=== PATIENT | male | born 1960 | race Caucasian/White ===

== ENCOUNTER 2016-08-09 11:29 | Emergency (ER) | payer MEDICAID ==
[2016-08-09] MEDS ORDERED: DIPH,PERTUS(ACELL)TETVAC-LF 0.5 ML VIAL IM ONE (11:55)
--- NOTE | 2016-08-09 12:16 | ED ---
Wound/Laceration HPI - General Chief Complaint: Wound/Laceration Stated Complaint: rt hand injury from mower blade Time Seen by Provider: 08/09/16 11:52 Source: patient, RN notes reviewed Mode of arrival: ambulatory Limitations: no limitations - History of Present Illness Initial Comments: 25-year-old male present emergency Department with chief complaint of finger lacerations. Patient states he was sharp pain has more blade splinter retightening him back on and slipped. Patient states his laceration to his second and third digit. Patient is unsure when his last tetanus was. Patient states has full range of motion no paresthesias. - Related Data Home Medications Medication Instructions Recorded Confirmed Allopurinol [Allopurinol] 300 mg PO DAILY 08/09/16 08/09/16 Glimepiride [Amaryl] 2 mg PO BID 08/09/16 08/09/16 metFORMIN HCL 1,000 mg PO BID 08/09/16 08/09/16 Previous Rx's Medication Instructions Recorded EPINEPHrine [Epipen 2-Charbel] 0.3 mg IM ONCE PRN #1 box 05/07/15 Allergies Allergy/AdvReac Type Severity Reaction Status Date / Time No Known Allergies Allergy Verified 08/09/16 11:47 Review of Systems ROS Statement: Those systems with pertinent positive or pertinent negative responses have been documented in the HPI. ROS Other: All systems not noted in ROS Statement are negative. Past Medical History Past Medical History: No Reported History History of Any Multi-Drug Resistant Organisms: None Reported Past Surgical History: Tonsillectomy Additional Past Surgical History / Comment(s): right great toe Past Psychological History: Anxiety, Depression Smoking Status: Never smoker Past Alcohol Use History: None Reported Past Drug Use History: None Reported General Exam Limitations: no limitations General appearance: alert, in no apparent distress Head exam: Present: atraumatic, normocephalic, normal inspection Respiratory exam: Present: normal lung sounds bilaterally. Absent: respiratory distress, wheezes, rales, rhonchi, stridor Cardiovascular Exam: Present: regular rate, normal rhythm, normal heart sounds. Absent: systolic murmur, diastolic murmur, rubs, gallop, clicks Extremities exam: Present: other (2 cm laceration to his right hand index finger , 1 cm laceration to third digit patient has full range of motion full-strength no tendon involvement neurovascular intact) Course Vital Signs 08/09/16 11:40 Temperature 98.4 F Pulse Rate 86 Respiratory 18 Rate Blood Pressure 133/81 O2 Sat by Pulse 97 Oximetry Procedures - Laceration Laceration #1 Consent Obtained: verbal consent Site: hand (Right hand second digit) Size (cm): 2 Description: irregular Depth: simple, single layer Anesthetic Used: lidocaine 1%, without epi Anesthesia Technique: local infiltration Amount (mls): 4 Pre-repair: wound explored, irrigated extensively, deep structures intact Type of Sutures: nylon Size of Sutures: 4-0 Number of Sutures: 5 Technique: simple, interrupted Patient Tolerated Procedure: well, no complications Laceration #2 Consent Obtained: verbal consent Indication: laceration Site: hand (Right hand third digit) Size (cm): 1 Description: linear, irregular Depth: simple, single layer Anesthetic Used: lidocaine 1%, without epi Anesthesia Technique: local infiltration Amount (mls): 2 Pre-repair: wound explored, irrigated extensively, deep structures intact Type of Sutures: nylon Size of Sutures: 4-0 Number of Sutures: 2 Technique: simple, interrupted Patient Tolerated Procedure: well, no complications Medical Decision Making - Medical Decision Making 55-year-old male presented for finger lacerations. They were closed using Ethilon sutures. Patient's wounds were thoroughly cleaned. Patient will be discharged tetanus was updated. Disposition Clinical Impression: Laceration of finger of right hand Disposition: HOME SELF-CARE Condition: Stable Instructions: Care For Your Stitches (ED), Finger Laceration (ED) Additional Instructions: Wash the area twice daily with soap and water. Have sutures removed in 10 days.Please return to the Emergency Department if symptoms worsen or any other concerns. Referrals: Jaime Osorio MD [Primary Care Provider] - 1-2 days Time of Disposition: 12:16
[2016-08-09 12:25] VITALS: BP 144/90; PULSE 90; RESP 16; TEMP 97.6
== END 2016-08-09 12:32 | disposition home or self-care (01) ==
LOC: EC 11:29
DX: S61.210A Laceration without foreign body of right index finger without damage to nail, initial encounter (principal); S61.212A Laceration without foreign body of right middle finger without damage to nail, initial encounter; Z23 Encounter for immunization; Z79.84 Long term (current) use of oral hypoglycemic drugs; Z79.899 Other long term (current) drug therapy
CPT/HCPCS: 12002; 90471; 90715; 99283

== ENCOUNTER → 2017-03-13 | Outpatient (CLI) | payer MEDICAID ==
[2017-03-13 15:35] LABS: Blood Urea Nitrogen 16 mg/dL (9-20); Non-African American GFR(MDRD) >60 (>60 ml/min/1.73 sqM)
--- NOTE | 2017-03-13 16:31 | CT ---
EXAMINATION TYPE: CT soft tissue neck w con DATE OF EXAM: 03/13/2017 HISTORY: Swelling to left jaw area. COMPARISON: NONE CT DLP: 435.4 mGycm. Automated Exposure Control for Dose Reduction was Utilized. TECHNIQUE: CT scan of the neck is performed with IV Contrast, patient injected with 100 mL of Omnipa que 300, axial images are obtained, coronal and sagittal reformatted images are reviewed. FINDINGS: The left submandibular gland is located deep to the BB marker indicating the area of swelling. Crania l to this there are few nonenlarged left submandibular lymph nodes. No enlarged lymph nodes are seen of the head or neck. Prominent jugulodigastric lymph nodes are present bilaterally, although nonenlar ged. No inflammatory changes are seen surrounding the submandibular or parotid glands. No focal hemod ynamically significant stenosis of greater than 50% of the carotid arteries prior. Minimal noncalcifi c atheromatous change is seen of the left common carotid artery. Left supraclavicular lymph node measures 8 mm in short axis and although is prominent, is nonenlarged . Globes are intact and orbits are symmetric. 8 mm hypoattenuated nodule seen of the left thyroid gla nd. Minimal subsegmental atelectasis is seen of the lung apices as is mild centrilobular emphysematou s change. Multilevel moderate degenerative change of the cervical spine is present. Polypoid mucosal thickening is present of both maxillary sinuses measuring up to 1.8 cm on the right. Ethmoid and sphe noid paranasal sinuses and mastoid air cells are well aerated. Localized calcification in the posteri or longitudinal ligament is seen at C2-C3. There is straightening of the usual cervical lordosis. IMPRESSION: 1. No abnormality deep to the patient's area of swelling within the left submandibular region. The le ft submandibular gland is seen deep to the palpable BB marker without asymmetric enhancement or infla mmatory change. No asymmetric size of the submandibular glands are seen. Nonenlarged left submandibul ar lymph nodes are noted. 2. Incidentally noted 8 mm left posterior thyroid nodule for which full characterization with thyroid ultrasound could be performed. 3. Polypoid mucosal thickening of the maxillary sinuses that may relate to retention cyst or paranasa l sinus polyps. 4. Straightening of the cervical lordosis that may relate to patient positioning or muscular spasm. M ultilevel moderate degenerative changes of the cervical spine are present. 5. Mild centrilobular emphysematous changes of the lung apices.
== END | disposition home or self-care (01) ==
LOC: RADXRMAIN 15:03
PROVIDERS: ATTEND Family Medicine
DX: E04.1 Nontoxic single thyroid nodule (principal); J43.9 Emphysema, unspecified; E11.9 Type 2 diabetes mellitus without complications
CPT/HCPCS: 82565; 84520; 70491; Q9967

== ENCOUNTER → 2018-07-06 | Outpatient (CLI) | payer MEDICAID ==
--- NOTE | 2018-07-07 07:21 | US ---
EXAMINATION TYPE: US thyroid st tissue head/neck DATE OF EXAM: 07/06/2018 COMPARISON: US 2017 CLINICAL HISTORY: E04.1 Nontoxic Single thyroid nodule. Goiter GLAND SIZE: Right Lobe: 5.4 x 1.6 x 1.9 cm Overall Parenchyma: homogenous Left Lobe: 4.5 x 1.5 x 1.8 cm Overall Parenchyma: homogeneous Isthmus Thickness: 0.4 cm NODULES RIGHT: # of nodules measured on right: 1 1. 0.4 X 0.3 x 0.6 cm hypoechoic bi-lobed cystic nodule at the mid pole with well-defined margins. This nodule is wider than tall and shows no intranodular vascularity. Prior size: no previous LEFT: 1# of nodules measured on left: 1 1. 1.4 X 0.7 x 1.0 cm hypoechoic cystic nodule at the mid pole with well-defined margins. This nodu le is wider than tall and shows intranodular vascularity seen in 0.3cm solid component. Prior size: 1.1 x 0.7 x 0.9 cm ISTHMUS: # of nodules measured in the isthmus: 0 Bilateral neck scanned, no evidence of lymphadenopathy. Enlarged right lobe with bilateral nodules seen. IMPRESSION: 1. There is a new vascular intranodular solid component within the left cystic thyroid nodule. Fine-n eedle aspiration of the solid component could be considered. 2. Subcentimeter right thyroid nodule is incidentally noted.
== END | disposition home or self-care (01) ==
LOC: RADUSWWP 15:56
PROVIDERS: ATTEND Internal Medicine Endocrinology, Diabetes & Metabolism
DX: E04.2 Nontoxic multinodular goiter (principal)
CPT/HCPCS: 76536

== ENCOUNTER → 2018-07-07 | Outpatient (CLI) | payer MEDICAID ==
[2018-07-07 10:45] LABS: Basophils # (A) 0.1 k/uL (0-0.2); Basophils % (A) 1 %; Eosinophils # (A) 0.3 k/uL (0-0.7); Eosinophils % (A) 3 %; HCT 49.3 % (39.0-53.0); HGB 15.8 gm/dL (13.0-17.5); Lymphocytes # (A) 2.4 k/uL (1.0-4.8); Lymphocytes % (A) 33 %; MCH 29.7 pg (25.0-35.0); MCHC 32.1 g/dL (31.0-37.0); MCV 92.3 fL (80.0-100.0); Mean Platelet Volume 6.4; Monocytes # (A) 0.4 k/uL (0-1.0); Monocytes % (A) 6 %; Neutrophils % (A) 54 %; Platelet Count 309 k/uL (150-450); RBC 5.34 m/uL (4.30-5.90); RDW 13.4 % (11.5-15.5); WBC 7.3 k/uL (3.8-10.6)
[2018-07-07 10:51] LABS: Appearance,Urine Clear (Clear); Bilirubin,Urine Negative (Negative); Blood,Urine Negative (Negative); Color,Urine Yellow; Glucose,Urine (UA) 4+ (Negative); Ketones,Urine Negative (Negative); Leukocyte Esterase,Urine Negative (Negative); Nitrite,Urine Negative (Negative); Protein,Urine Negative (Negative); Specific Gravity,Urine 1.031 (1.001-1.035); Urobilinogen,Urine <2.0 mg/dL (<2.0)
[2018-07-07 17:44] LABS: ALT 27 U/L (10-49); AST 21 U/L (14-35); Albumin/Globulin Ratio 2.09 (1.60-3.17); Alkaline Phosphatase 73 U/L (41-126); Calcium 9.4 mg/dL (8.7-10.3); Carbon Dioxide 28.4 mmol/L (21.6-31.8); Chloride 105 mmol/L (96-109); Cholesterol 213 mg/dL (0-200); Globulin 2.2 g/dL (1.6-3.3); Glucose 154 mg/dL (70-110); Magnesium 1.9 mg/dL (1.5-2.4); Potassium 4.6 mmol/L (3.5-5.5); Sodium 141 mmol/L (135-145); Total Bilirubin 0.4 mg/dL (0.3-1.2); Total Protein 6.8 g/dL (6.2-8.2)
[2018-07-07 18:59] LABS: Hemoglobin A1C 7.8 % (4.0-6.0)
== END | disposition home or self-care (01) ==
LOC: LABWHC1 09:13
PROVIDERS: ATTEND Internal Medicine Endocrinology, Diabetes & Metabolism
DX: E11.65 Type 2 diabetes mellitus with hyperglycemia (principal); E04.1 Nontoxic single thyroid nodule; I10 Essential (primary) hypertension; E78.5 Hyperlipidemia, unspecified; Z12.5 Encounter for screening for malignant neoplasm of prostate
CPT/HCPCS: 36415; 80053; 80061; 81003; 82043; 82570; 82607; 83036; 83721; 83735; 84153; 84439; 84443; 85025

== ENCOUNTER → 2018-12-22 | Outpatient (CLI) | payer MEDICAID ==
--- NOTE | 2018-12-22 17:44 | FL ---
EXAMINATION: Cervical and Thoracic Esophagram DATE OF EXAM: 12/22/2018 CLINICAL INDICATION: 58-year-old male with dysphagia, throat soreness, trouble swallowing, worsening for the last week after possible burning throat with hot food. COMPARISON: None Total Fluoroscopy Time: 1 minute 13 seconds. Total images: 27. FINDINGS: The swallowing mechanism is normal and hypopharyngeal anatomy is preserved. There is DISH with anterior bridging endplate spondylosis extending from C4 inferiorly. This causes o nly mild impression onto the posterior hypopharynx and upper cervical esophagus without obstruction. The thoracic portion is a normal course and caliber. The mucosa is normal and no persistent filling d efect is encountered. There are blunted secondary stripping waves with the patient is supine and [id number] tertiary peristaltic contractions. Small hiatal hernia. Gastroesophageal reflux was not visualized. IMPRESSION: 1. DISH with anterior bridging endplate spondylosis extending from C4 down. This causes only mild pos terior impression on to the cervical esophagus without obstruction. 2. Mild to moderate dysmotility with blunted secondary stripping waves and prolonged pooling of contr ast in the esophagus when the patient is supine. 3. Small hiatal hernia incidentally seen.
== END | disposition home or self-care (01) ==
LOC: RADXRMAIN 12:46
PROVIDERS: ATTEND Otolaryngology
DX: R13.10 Dysphagia, unspecified (principal)
CPT/HCPCS: 74220

== ENCOUNTER → 2018-12-29 | Outpatient (CLI) | payer MEDICAID | END | disposition home or self-care (01) | LOC: LABWHC1 13:33 | PROVIDERS: ATTEND Otolaryngology | DX: E04.1 Nontoxic single thyroid nodule (principal) | CPT/HCPCS: 36415; 86376 ==

== ENCOUNTER → 2019-11-01 | Outpatient (CLI) | payer MEDICAID ==
[2019-11-01 09:13] LABS: Basophils # (A) 0.1 k/uL (0-0.2); Basophils % (A) 1 %; Eosinophils # (A) 0.2 k/uL (0-0.7); Eosinophils % (A) 3 %; HCT 49.5 % (39.0-53.0); HGB 16.6 gm/dL (13.0-17.5); Lymphocytes % (A) 27 %; MCHC 33.6 g/dL (31.0-37.0); MCV 92.3 fL (80.0-100.0); Mean Platelet Volume 7.4; Monocytes # (A) 0.4 k/uL (0-1.0); Monocytes % (A) 6 %; Neutrophils # (A) 4.5 k/uL (1.3-7.7); Neutrophils % (A) 60 %; Platelet Count 291 k/uL (150-450); RBC 5.36 m/uL (4.30-5.90); RDW 12.9 % (11.5-15.5); WBC 7.4 k/uL (3.8-10.6)
[2019-11-01 16:59] LABS: African American GFR (CKD) 113.3 (60.0-200.0); Albumin 4.7 g/dL (3.80-4.90); Albumin/Globulin Ratio 2.14 (1.60-3.17); Calcium 9.4 mg/dL (8.7-10.3); Chol/HDL Ratio 6.06; Globulin 2.2 g/dL (1.6-3.3); Non-African American GFR(CKD) 97.8 (60.0-200.0); Potassium 4.7 mmol/L (3.5-5.5); Total Bilirubin 0.5 mg/dL (0.2-1.2); Total Protein 6.9 g/dL (6.2-8.2)
[2019-11-01 18:29] LABS: Hemoglobin A1C 7.9 % (4.0-6.0)
== END | disposition home or self-care (01) ==
LOC: LABWHC1 08:09
PROVIDERS: ATTEND Family Medicine
DX: Z00.00 Encounter for general adult medical examination without abnormal findings (principal); E11.9 Type 2 diabetes mellitus without complications; E78.2 Mixed hyperlipidemia
CPT/HCPCS: 36415; 80053; 80061; 83036; 84153; 84443; 85025

== ENCOUNTER → 2019-11-01 | Outpatient (CLI) | payer MEDICAID ==
--- NOTE | 2019-11-01 11:39 | ECHOF ---
Referral Reason:R07.89 Other Chest Pain MEASUREMENTS -------- HEIGHT: 175.3 cm WEIGHT: 93.0 kg BP: RVIDd: 3.3 cm (< 3.3) IVSd: 1.6 cm (0.6 - 1.1) LVIDd: 4.1 cm (3.9 - 5.3) LVPWd: 1.6 cm (0.6 - 1.1) IVSs: 2.1 cm LVIDs: 2.4 cm LVPWs: 2.0 cm Ao Diam: 3.5 cm (2.0 - 3.7) AV Cusp: 1.2 cm (1.5 - 2.6) LA Diam: 3.0 cm (2.7 - 3.8) MV EXCURSION: 14.991 mm (> 18.000) MV EF SLOPE: 72 mm/s (70 - 150) EPSS: 0.3 cm MV E Wilver: 0.86 m/s MV DecT: 220 ms MV A Wilver: 0.76 m/s MV E/A Ratio: 1.13 AV maxP.25 mmHg AV meanP.22 mmHg RAP: 5.00 mmHg RVSP: 14.86 mmHg TAPSE: 22.05 mm FINDINGS -------- Sinus rhythm. This was a technically adequate study. The left ventricular size is normal. There is moderate concentric left ventricular hypertrophy. O verall left ventricular systolic function is normal with, an EF between 55 - 60 %. The right ventricle is normal in size. The left atrial size is normal. The right atrial size is normal. There is mild aortic valve sclerosis. There is mild aortic regurgitation. There is mild to mod ao rtic stenosis present. Peak/mean gradient across the Aortic Valve is 28.25mmHg / 16.22mmHg. The mitral valve leaflets are mildly thickened. There is trace mitral regurgitation. The tricuspid valve appears structurally normal. Mild tricuspid regurgitation present. Right vent ricular systolic pressure is normal at < 35 mmHg. There is no pulmonic regurgitation present. The aortic root size is normal. IVC Not well visulized. There is no pericardial effusion. CONCLUSIONS -------- 1. There is moderate concentric left ventricular hypertrophy. 2. Overall left ventricular systolic function is normal with, an EF between 55 - 60 %. 3. The left atrial size is normal. 4. There is mild aortic valve sclerosis. 5. There is mild aortic regurgitation. 6. There is mild to mod aortic stenosis present. 7. The mitral valve leaflets are mildly thickened. 8. There is trace mitral regurgitation. 9. Mild tricuspid regurgitation present. 10. There is no pulmonic regurgitation present. 11. There is no pericardial effusion. FRONT LINE SUPERVISOR: Daisy Ayala RDCS
--- NOTE | 2019-11-01 13:36 | ECHOS ---
STRESS ECHOCARDIOGRAM LUMASON: - Vial INDICATIONS: Chest pain. MEDICATIONS: BASELINE HEART RATE: 73 BASELINE BLOOD PRESSURE: 134/84 MAXIMUM HEART RATE: 158 MAXIMUM BLOOD PRESSURE: 186/54 85% MPHR: 137 100% MPHR: 161 METS: 12.1 MAXIMUM STAGE REACHED: 4 TOTAL EXERCISE TIME: 11:10 CLINICAL INFORMATION: Baseline rhythm is a sinus mechanism, rate of 73, normal axis and intervals, normal electrocardiogram. Baseline blood pressure 134/84 mmHg. Patient exercise on Noman protocol for 11 minutes, 10 seconds reaching peak rate 158 beats per minute which is equal to 98% maximum predicted heart rate. Peak blood pressure 186/54 mmHg. Test was terminated due to fatigue. There was no chest pain, electrocardiograph monitoring revealed [address]-segment depression inferolateral leads with occasional PVCs. The ST- segment depression resolved in recovery. FINDINGS: Baseline echocardiogram revealed normal wall motion. At peak exercise, there was normal wall motion augmentation with no hypokinesis or dyskinesis. CONCLUSION: 1. Good exercise tolerance with mildly positive electrocardiograph stress testing. 2. Normal stress echocardiogram with no evidence of stress-induced ischemia. MMODL / IJN: [id number] /
== END | disposition home or self-care (01) ==
LOC: RADNMMAIN 08:38
PROVIDERS: ATTEND Internal Medicine Interventional Cardiology
DX: I35.0 Nonrheumatic aortic (valve) stenosis (principal)
CPT/HCPCS: 93306; 93351

== ENCOUNTER → 2019-12-02 | Outpatient (CLI) | payer MEDICAID ==
--- NOTE | 2019-12-02 16:36 | MR ---
EXAMINATION TYPE: MR lumbar spine wo con DATE OF EXAM: 12/02/2019 COMPARISON: None HISTORY: Low back pain into rt hip CONTRAST: 0 mL intravenous Gadavist. TECHNIQUE: Multiplanar, multisequence images of the lumbar spine were acquired. FINDINGS: L5-S1: No significant disc bulge or disc herniation. No spinal canal stenosis. No foraminal stenosi s. Facet hypertrophy is present with some posterior lateral thecal sac compression. Some mild latera l narrowing may be present. L4-L5: No significant disc bulge or disc herniation. No spinal canal stenosis. No foraminal stenosi s. Facet hypertrophy is present with mild posterior lateral thecal sac contact.. L3-L4: No significant disc bulge or disc herniation. No spinal canal stenosis. No foraminal stenosi s. . L2-L3: No significant disc bulge or disc herniation. No spinal canal stenosis. No foraminal stenosi s. There may be a focal spurring on the left L2-L3 facet with moderate left sac contact. No increase d signal by T2 weighted sequences suggests synovial cyst is identified. No stenosis is present. Neura l foramen appears patent.. L1-L2: No significant disc bulge or disc herniation. No spinal canal stenosis. No foraminal stenosi s. Neural foramen are patent.. T12-L1: No significant disc bulge or disc herniation. No spinal canal stenosis. No foraminal stenos is. Neural foramen are patent.. IMPRESSION: 1. Mild lateral canal narrowing L5-S1 secondary to facet hypertrophy and ligamentum flavum laxity. 2. Facet hypertrophy with ligamentum flavum laxity and possible spur left L2-L3 has moderate left lat eral
== END | disposition home or self-care (01) ==
LOC: RADMRIMAIN 15:45
PROVIDERS: ATTEND Orthopaedic Surgery
DX: M48.061 Spinal stenosis, lumbar region without neurogenic claudication (principal)
CPT/HCPCS: 72148

== ENCOUNTER 2020-06-30 13:31 | Emergency (ER) | payer MEDICAID ==
--- NOTE | 2020-06-30 14:03 | ED ---
General Adult HPI - General Chief complaint: Shortness of Breath Stated complaint: Covid+,Fever,SOB Source: patient, RN notes reviewed, old records reviewed Mode of arrival: ambulatory Limitations: no limitations - History of Present Illness Initial comments: This is a 59-year-old male who presents emergency department stating that he has been tested positive for COVID. Patient states she's had a fever since last Thursday. Patient states he's been feeling a little bit more short of breath and his oxygen saturations have been dropping slowly over the week and so he thought he come back to the emergency department. Patient states she's had no diarrhea patient denies any loss of taste or smell. Patient denies any chest pain or palpitations. Patient denies any abdominal pain. She complains of a mild headache. Patient denies numbness weakness. - Related Data Home Medications Medication Instructions Recorded Confirmed Allopurinol 300 mg PO DAILY 08/09/16 12/31/18 Glimepiride [Amaryl] 2 mg PO BID 08/09/16 12/31/18 metFORMIN HCL 1,000 mg PO BID 08/09/16 12/31/18 Celexa(Unk Dose) 1 dose PO QAM 12/31/18 Insulin Glargine [Lantus] 30 unit SQ HS 12/31/18 12/31/18 Previous Rx's Medication Instructions Recorded EPINEPHrine [Epipen 2-Charbel] 0.3 mg IM ONCE PRN #1 box 05/07/15 Allergies Allergy/AdvReac Type Severity Reaction Status Date / Time crab Allergy Anaphylaxis Verified 06/30/20 13:37 Review of Systems ROS Statement: Those systems with pertinent positive or pertinent negative responses have been documented in the HPI. ROS Other: All systems not noted in ROS Statement are negative. Past Medical History Past Medical History: Diabetes Mellitus History of Any Multi-Drug Resistant Organisms: None Reported Past Surgical History: Tonsillectomy Additional Past Surgical History / Comment(s): right great toe, Past Psychological History: Anxiety, Depression Smoking Status: Current some day smoker Past Alcohol Use History: Occasional Past Drug Use History: None Reported General Exam - General Exam Comments Initial Comments: GENERAL: Patient is well-developed and well-nourished. Patient is nontoxic and well- hydrated and is in mild distress. ENT: Neck is soft and supple. No significant lymphadenopathy is noted. Oropharynx is clear. Moist mucous membranes. Neck has full range of motion without eliciting any pain. EYES: The sclera were anicteric and conjunctiva were pink and moist. Extraocular movements were intact and pupils were equal round and reactive to light. Eyelids were unremarkable. PULMONARY: Unlabored respirations. Good breath sounds bilaterally. Patient has crackles in the right base. CARDIOVASCULAR: There is a regular rate and rhythm without any murmurs gallops or rubs. ABDOMEN: Soft and nontender with normal bowel sounds. SKIN: Skin is clear with no lesions or rashes and otherwise unremarkable. NEUROLOGIC: Patient is alert and oriented x3. Cranial nerves II through XII are grossly intact. Motor and sensory are also intact. Normal speech, volume and content. Symmetrical smile. MUSCULOSKELETAL: Normal extremities with adequate strength and full range of motion. LYMPHATICS: No significant lymphadenopathy is noted PSYCHIATRIC: Normal psychiatric evaluation. Limitations: no limitations Course Vital Signs 06/30/20 06/30/20 06/30/20 13:34 13:50 13:58 Temperature 99.1 F Pulse Rate 83 90 Respiratory 18 18 Rate Blood Pressure 140/86 O2 Sat by Pulse 94 L 94 L Oximetry Medical Decision Making - Medical Decision Making EKG shows normal sinus rhythm at [address] interval 164 QRS is 92 QT interval 370 QTC is 4:30. Patient's EKG shows no ST segment elevation or depression. Chest x-ray shows COVID the morning Patient qualified for a monoclonal antibodies he was sees monoclonal antibodies. Patient oxygen got down to 92 with vigorous walking around the emergency department initially sat down and was back up to 20 9496% on room air - Lab Data Result diagrams: 06/30/20 13:58 06/30/20 13:58 Lab Results 06/30/20 06/30/20 06/30/20 Range/Units 13:58 13:58 13:58 WBC 6.3 (3.8-10.6) k/uL RBC 5.04 (4.30-5.90) m/uL Hgb 15.6 (13.0-17.5) gm/dL Hct 45.1 (39.0-53.0) % MCV 89.4 (80.0-100.0) fL MCH 30.9 (25.0-35.0) pg MCHC 34.6 (31.0-37.0) g/dL RDW 12.3 (11.5-15.5) % Plt Count 216 (150-450) k/uL MPV 7.4 Neutrophils % 75 % Lymphocytes % 19 % Monocytes % 4 % Eosinophils % 0 % Basophils % 1 % Neutrophils # 4.7 (1.3-7.7) k/uL Lymphocytes # 1.2 (1.0-4.8) k/uL Monocytes # 0.2 (0-1.0) k/uL Eosinophils # 0.0 (0-0.7) k/uL Basophils # 0.0 (0-0.2) k/uL PT 9.9 (9.0-12.0) sec INR 0.9 (<1.2) APTT 30.8 H (22.0-30.0) sec D-Dimer 0.58 (<0.60) mg/L FEU Sodium 135 L (137-145) mmol/L Potassium 3.8 (3.5-5.1) mmol/L Chloride 98 (98-107) mmol/L Carbon Dioxide 25 (22-30) mmol/L Anion Gap 12 mmol/L BUN 20 (9-20) mg/dL Creatinine 0.58 L (0.66-1.25) mg/dL Est GFR (CKD-EPI)AfAm >90 (>60 ml/min/1.73 sqM) Est GFR (CKD-EPI)NonAf >90 (>60 ml/min/1.73 sqM) Glucose 144 H (74-99) mg/dL Plasma Lactic Acid Nikunj (0.7-2.0) mmol/L Calcium 8.4 (8.4-10.2) mg/dL Magnesium 2.0 (1.6-2.3) mg/dL Total Bilirubin 0.6 (0.2-1.3) mg/dL AST 42 (17-59) U/L ALT 25 (4-49) U/L Alkaline Phosphatase 62 (38-126) U/L Lactate Dehydrogenase 914 H (313-618) U/L C-Reactive Protein 31.2 H (<10.0) mg/L Total Protein 6.7 (6.3-8.2) g/dL Albumin 3.9 (3.5-5.0) g/dL Coronavirus (PCR) (Not Detectd) 06/30/20 06/30/20 Range/Units 13:58 14:14 WBC (3.8-10.6) k/uL RBC (4.30-5.90) m/uL Hgb (13.0-17.5) gm/dL Hct (39.0-53.0) % MCV (80.0-100.0) fL MCH (25.0-35.0) pg MCHC (31.0-37.0) g/dL RDW (11.5-15.5) % Plt Count (150-450) k/uL MPV Neutrophils % % Lymphocytes % % Monocytes % % Eosinophils % % Basophils % % Neutrophils # (1.3-7.7) k/uL Lymphocytes # (1.0-4.8) k/uL Monocytes # (0-1.0) k/uL Eosinophils # (0-0.7) k/uL Basophils # (0-0.2) k/uL PT (9.0-12.0) sec INR (<1.2) APTT (22.0-30.0) sec D-Dimer (<0.60) mg/L FEU Sodium (137-145) mmol/L Potassium (3.5-5.1) mmol/L Chloride (98-107) mmol/L Carbon Dioxide (22-30) mmol/L Anion Gap mmol/L BUN (9-20) mg/dL Creatinine (0.66-1.25) mg/dL Est GFR (CKD-EPI)AfAm (>60 ml/min/1.73 sqM) Est GFR (CKD-EPI)NonAf (>60 ml/min/1.73 sqM) Glucose (74-99) mg/dL Plasma Lactic Acid Nikunj 1.0 (0.7-2.0) mmol/L Calcium (8.4-10.2) mg/dL Magnesium (1.6-2.3) mg/dL Total Bilirubin (0.2-1.3) mg/dL AST (17-59) U/L ALT (4-49) U/L Alkaline Phosphatase (38-126) U/L Lactate Dehydrogenase (313-618) U/L C-Reactive Protein (<10.0) mg/L Total Protein (6.3-8.2) g/dL Albumin (3.5-5.0) g/dL Coronavirus (PCR) Detected A (Not Detectd) Disposition Clinical Impression: Pneumonia due to COVID-19 virus Disposition: HOME SELF-CARE Condition: Good Instructions (If sedation given, give patient instructions): Coronavirus Disease 2019 (COVID-19) Is patient prescribed a controlled substance at d/c from ED?: No Referrals: Jaime Osorio MD [Primary Care Provider] - 1-2 days Time of Disposition: 14:57
[2020-06-30 14:25] LABS: ALT 25 U/L (4-49); AST 42 U/L (17-59); African American GFR (CKD) >90 (>60 ml/min/1.73 sqM); Albumin 3.9 g/dL (3.5-5.0); Alkaline Phosphatase 62 U/L (38-126); Anion Gap 12 mmol/L; Basophils % (A) 1 %; Blood Urea Nitrogen 20 mg/dL (9-20); C Reactive Protein 31.2 mg/L (<10.0); Calcium 8.4 mg/dL (8.4-10.2); Carbon Dioxide 25 mmol/L (22-30); Chloride 98 mmol/L (98-107); Eosinophils % (A) 0 %; Glucose 144 mg/dL (74-99); HCT 45.1 % (39.0-53.0); HGB 15.6 gm/dL (13.0-17.5); LDH 914 U/L (313-618); Lymphocytes # (A) 1.2 k/uL (1.0-4.8); Lymphocytes % (A) 19 %; MCH 30.9 pg (25.0-35.0); MCHC 34.6 g/dL (31.0-37.0); MCV 89.4 fL (80.0-100.0); Mean Platelet Volume 7.4; Monocytes # (A) 0.2 k/uL (0-1.0); Monocytes % (A) 4 %; Neutrophils # (A) 4.7 k/uL (1.3-7.7); Neutrophils % (A) 75 %; Non-African American GFR(CKD) >90 (>60 ml/min/1.73 sqM); Platelet Count 216 k/uL (150-450); Potassium 3.8 mmol/L (3.5-5.1); RBC 5.04 m/uL (4.30-5.90); RDW 12.3 % (11.5-15.5); Sodium 135 mmol/L (137-145); Total Bilirubin 0.6 mg/dL (0.2-1.3); Total Protein 6.7 g/dL (6.3-8.2); WBC 6.3 k/uL (3.8-10.6)
[2020-06-30 14:42] LABS: D-Dimer 0.58 mg/L FEU (<0.60); INR 0.9 (<1.2); Partial Thromboplastin Time 30.8 sec (22.0-30.0); Prothrombin Time 9.9 sec (9.0-12.0)
--- NOTE | 2020-06-30 14:44 | XR ---
EXAMINATION TYPE: XR chest 1V portable DATE OF EXAM: 06/30/2020 COMPARISON: NONE HISTORY: Covid 19 pneumonia TECHNIQUE: Single frontal view of the chest is obtained. FINDINGS: Bilateral airspace disease is present. No pneumothorax or pleural effusion. Cardiac medias tinal silhouette is within normal limits. IMPRESSION: Correlate for pneumonia.
[2020-06-30] MEDS ORDERED: BAMLANIVIMAB 700 MG in SODIUM CHLORIDE 0.9% 50 ML IVPB ONE (15:45)
[2020-06-30 15:56] VITALS: RESP 16
[2020-06-30 17:35] VITALS: BP 140/76; PULSE 82; TEMP 100.6
== END 2020-06-30 17:00 | disposition home or self-care (01) ==
LOC: EC 13:31
DX: U07.1 COVID-19 (principal); J12.82 Pneumonia due to coronavirus disease 2019; E11.9 Type 2 diabetes mellitus without complications; F41.9 Anxiety disorder, unspecified; F32.9 Major depressive disorder, single episode, unspecified; F17.200 Nicotine dependence, unspecified, uncomplicated; Z79.4 Long term (current) use of insulin; Z79.899 Other long term (current) drug therapy; Z90.89 Acquired absence of other organs; Z91.013 Allergy to seafood
CPT/HCPCS: 36415; 93005; 85379; 80053; 82728; 83605; 83615; 83735; 85025; 85610; 85730; 86140; 87040; 84145; 87635; 71045; 99285; 96365; Q0239

== ENCOUNTER → 2020-07-31 | Outpatient (CLI) | payer MEDICAID ==
[2020-07-31 19:00] LABS: Chol/HDL Ratio 6.5
== END | disposition home or self-care (01) ==
LOC: LABWHC1 08:07
PROVIDERS: ATTEND Internal Medicine Interventional Cardiology
DX: E78.2 Mixed hyperlipidemia (principal)
CPT/HCPCS: 36415; 80061; 83721; 84450; 84460

== ENCOUNTER → 2020-08-16 | Outpatient (CLI) | payer MEDICAID ==
[2020-08-16 22:40] LABS: African American GFR (CKD) 113.3 (60.0-200.0); Albumin 4.9 g/dL (3.80-4.90); Albumin/Globulin Ratio 2.45 (1.60-3.17); Anion Gap 12.3 mmol/L (4.00-12.00); BUN/Creat Ratio 18.75 Ratio (12.00-20.00); Carbon Dioxide 23.7 mmol/L (21.6-31.8); Chol/HDL Ratio 6.18; LDL Cholesterol,Calculated 100.8 mg/dL (0.0-131.0); Magnesium 1.8 mg/dL (1.5-2.4); Non-African American GFR(CKD) 97.8 (60.0-200.0); Potassium 4.4 mmol/L (3.5-5.5); Total Bilirubin 0.4 mg/dL (0.3-1.2); Total Protein 6.9 g/dL (6.2-8.2); VLDL Calculation 70.2 mg/dL (5.00-40.00)
[2020-08-16 22:49] LABS: T4, Free (Free Thyroxine) 1.2 ng/dL (0.80-1.80)
[2020-08-17 22:20] LABS: Urine Creatinine 73.2 mg/dL
== END | disposition home or self-care (01) ==
LOC: LABWHC1 09:08
PROVIDERS: ATTEND Internal Medicine Endocrinology, Diabetes & Metabolism
DX: E11.65 Type 2 diabetes mellitus with hyperglycemia (principal); E04.2 Nontoxic multinodular goiter; E78.5 Hyperlipidemia, unspecified
CPT/HCPCS: 36415; 80053; 80061; 82043; 82570; 82607; 83735; 84439; 84443

== ENCOUNTER → 2020-08-31 | Outpatient (CLI) | payer MEDICAID ==
--- NOTE | 2020-09-01 04:40 | US ---
EXAMINATION TYPE: US kidneys/renal and bladder DATE OF EXAM: 08/31/2020 COMPARISON: NONE CLINICAL HISTORY: N28.1 CYST OF KIDNEY. EXAM MEASUREMENTS: Right Kidney: 10.8 x 5.8 x 5.6 cm Left Kidney: 10.7 x 6.2 x 6.2 cm Right Kidney: 2 cysts adjacent to each other 1.)1.3 x 1.0 x 1.0, 2.) 2.1 x 2.8 x 2.6cm Left Kidney: prominent dromedary hump Bladder: wnl . IMPRESSION: There are simple renal cortical cysts on the right side. No solid renal mass or obstruction. No evide nce of bladder mass.
== END | disposition home or self-care (01) ==
LOC: RADUSWWP 14:46
PROVIDERS: ATTEND Family Medicine
DX: N28.1 Cyst of kidney, acquired (principal)
CPT/HCPCS: 76770

== ENCOUNTER → 2020-08-31 | Outpatient (CLI) | payer MEDICAID ==
--- NOTE | 2020-09-01 04:37 | US ---
EXAMINATION TYPE: US thyroid st tissue head/neck DATE OF EXAM: 08/31/2020 COMPARISON: NONE CLINICAL HISTORY: E04.2 MULTINODULAR GOITER. GLAND SIZE: Right Lobe: 5.4 1.2 x 1.6 cm Overall Parenchyma: homogenous Left Lobe: 4.8 x 1.3 x 2.1 cm Overall Parenchyma: homogeneous Isthmus Thickness: 0.2 cm NODULES RIGHT: # of nodules measured on right: 1 1. 0.4 X 0.2 x 0.3 cm, mid cystic or almost completely cystic, anechoic nodule, which is wider than tall, with smooth margins, without echogenic foci. Prior size: 0.4 x 0.3 x 0.6 cm LEFT: # of nodules measured on left: 1 1. 1.2 X 0.8 x 1.0 cm, mid, cystic or almost completely cystic, anechoic nodule, which is wider flakita n tall, with smooth margins, without echogenic foci. Prior size: 1.1 x 0.7 x 0.9 cm ISTHMUS: # of nodules measured in the isthmus: 0 Bilateral neck scanned, no evidence of lymphadenopathy. IMPRESSION: Bilateral benign-appearing thyroid cysts not significantly different than old exam. No evidence of ce rvical adenopathy. No suspicious thyroid mass. 2017 ACR TI-RADS LEVEL: 2. Not suspicious. *Highest TI-RADS level nodule reported
== END | disposition home or self-care (01) ==
LOC: RADUSWWP 14:47
PROVIDERS: ATTEND Internal Medicine Endocrinology, Diabetes & Metabolism
DX: E04.2 Nontoxic multinodular goiter (principal)
CPT/HCPCS: 76536

== ENCOUNTER → 2020-11-27 | Outpatient (CLI) | payer MEDICAID ==
[2020-11-27 11:40] LABS: Basophils # (A) 0.06 X 10*3/uL (0.00-0.10); Basophils % (A) 0.8 %; Eosinophils # (A) 0.27 X 10*3/uL (0.04-0.35); Eosinophils % (A) 3.5 %; HCT 47.7 % (39.6-50.0); HGB 15.9 g/dL (13.0-17.0); Lymphocytes # (A) 2.66 X 10*3/uL (0.90-5.00); Lymphocytes % (A) 34.5 %; MCH 30.4 pg (27.0-32.0); MCHC 33.3 g/dL (32.0-37.0); MCV 91.2 fL (80.0-97.0); Mean Platelet Volume 10.1 fL (9.5-12.2); Monocytes % (A) 9.1 %; Neutrophils # (A) 4.01 X 10*3/uL (1.80-7.70); Platelet Count 269 X 10*3/uL (140-440); RBC 5.23 X 10*6/uL (4.40-5.60); RDW 12.6 % (11.5-14.5); WBC 7.71 X 10*3/uL (4.50-10.00)
[2020-11-27 14:21] LABS: African American GFR (CKD) 112.5 (60.0-200.0); Albumin 4.7 g/dL (3.80-4.90); Albumin/Globulin Ratio 2.14 (1.60-3.17); Anion Gap 10.3 mmol/L (4.00-12.00); BUN/Creat Ratio 18.75 Ratio (12.00-20.00); Calcium 9.5 mg/dL (8.7-10.3); Carbon Dioxide 25.7 mmol/L (21.6-31.8); Globulin 2.2 g/dL (1.6-3.3); Non-African American GFR(CKD) 97.1 (60.0-200.0); Potassium 4.8 mmol/L (3.5-5.5); Total Bilirubin 0.4 mg/dL (0.3-1.2); Total Protein 6.9 g/dL (6.2-8.2)
[2020-11-27 14:51] LABS: Prostate Specific Antigen 0.3 ng/mL (0.0-4.5)
[2020-11-27 19:29] LABS: Urine Creatinine 95.8 mg/dL
== END | disposition home or self-care (01) ==
LOC: LABWHC1 07:56
PROVIDERS: ATTEND Internal Medicine Interventional Cardiology
DX: Z12.5 Encounter for screening for malignant neoplasm of prostate (principal); R53.83 Other fatigue; E78.5 Hyperlipidemia, unspecified; E11.37X1 Type 2 diabetes mellitus with diabetic macular edema, resolved following treatment, right eye; Z20.828 Contact with and (suspected) exposure to other viral communicable diseases
CPT/HCPCS: 84153; 80053; 84443; 85025; 82306; 82043; 82570; 86769; 36415; C9803

== ENCOUNTER → 2020-12-12 | Outpatient (CLI) | payer MEDICAID ==
--- NOTE | 2020-12-12 11:11 | ECHOF ---
Referral Reason:I35.0 nonrheumatic aortic stenosis MEASUREMENTS -------- HEIGHT: 175.3 cm WEIGHT: 88.5 kg BP: IVSd: 1.5 cm (0.6 - 1.1) LVIDd: 3.7 cm (3.9 - 5.3) LVPWd: 1.5 cm (0.6 - 1.1) IVSs: 2.3 cm LVIDs: 1.6 cm LVPWs: 1.8 cm LAESV Index (A-L): 20.53 ml/m Ao Diam: 3.8 cm (2.0 - 3.7) AV Cusp: 1.1 cm (1.5 - 2.6) LA Diam: 3.9 cm (2.7 - 3.8) MV EXCURSION: 19.783 mm (> 18.000) MV EF SLOPE: 94 mm/s (70 - 150) EPSS: 0.6 cm MV E Wilver: 0.78 m/s MV DecT: 187 ms MV A Wilver: 0.81 m/s MV E/A Ratio: 0.97 AV maxP.50 mmHg AV meanP.94 mmHg AR PHT: 636 ms RAP: 5.00 mmHg RVSP: 14.31 mmHg FINDINGS -------- This was a technically good study. The left ventricular size is normal. There is moderate concentric left ventricular hypertrophy. O verall left ventricular systolic function is normal with, an EF between 55 - 60 %. The diastolic fi lling pattern is normal for the age of the patient 11.08. The right ventricle is normal in size. The left atrial size is normal. Normal LA size by volume 22+/-6 ml/m2. The right atrial size is normal. Aortic valve is trileaflet and is severely thickened. Trace amount of aortic regurgitation. Ther e is moderate aortic stenosis present. The aortic valve area by continuity equation is .7 cm2. P eak/mean gradient across the Aortic Valve is 35.50mmHg / 19.94mmHg. The mitral valve is normal. There is trace mitral regurgitation. The tricuspid valve appears structurally normal. Mild tricuspid regurgitation present. Right vent ricular systolic pressure is normal at < 35 mmHg. There is no pulmonic regurgitation present. The aortic root size is normal. Normal inferior vena cava with normal inspiratory collapse consistent with estimated right atrial pre ssure of 5 mmHg. There is no pericardial effusion. CONCLUSIONS -------- 1. The left ventricular size is normal. 2. There is moderate concentric left ventricular hypertrophy. 3. Overall left ventricular systolic function is normal with, an EF between 55 - 60 %. 4. The diastolic filling pattern is normal for the age of the patient 11.08 5. Aortic valve is trileaflet and is severely thickened. 6. Trace amount of aortic regurgitation. 7. There is moderate aortic stenosis present. 8. The aortic valve area by continuity equation is .7 cm2 9. Peak/mean gradient across the Aortic Valve is 35.50mmHg / 19.94mmHg. 10. There is trace mitral regurgitation. 11. Mild tricuspid regurgitation present. 12. There is no pericardial effusion. [employer]: Daisy Ayala RDCS
[2020-12-12 18:23] LABS: Chol/HDL Ratio 5.81; LDL Cholesterol,Calculated 67.4 mg/dL (0.0-131.0); VLDL Calculation 62.6 mg/dL (5.00-40.00)
== END | disposition home or self-care (01) ==
LOC: RADECHMAIN 08:03
PROVIDERS: ATTEND Internal Medicine Interventional Cardiology
DX: I34.0 Nonrheumatic mitral (valve) insufficiency (principal); I07.1 Rheumatic tricuspid insufficiency; I35.0 Nonrheumatic aortic (valve) stenosis; E78.2 Mixed hyperlipidemia
CPT/HCPCS: 80061; 84450; 84460; 93306

== ENCOUNTER 2021-01-23 06:20 | Day surgery (SDC) | payer MEDICAID ==
[2021-01-18 16:07] VITALS: BMI 28.8
[~2021-01-23 06:20] MED LIST: LIDOCAINE 1% (10MG/ML) FOR IV START INTRADERMA PRN
[2021-01-23] MEDS: LACTATED RINGERS 1,000 ML IV SCH ×2 (06:42→07:02)
[2021-01-23 06:57] LABS: Glucose,Whole Blood 188 mg/dL (75-99)
[2021-01-23] MEDS ORDERED: PROPOFOL 10 MG/ML 20 ML VIAL IV ONE (07:00)
[2021-01-23] MEDS ORDERED: LIDOCAINE 1% INJ 10MG/ML (20 ML MDV) ONE (07:00)
[2021-01-23 07:01] VITALS: RESP 16; TEMP 97
--- NOTE | 2021-01-23 07:18 | P.PCN ---
Date of Procedure: 01/23/21 Procedure(s) Performed: BRIEF HISTORY: Patient is a 60-year-old pleasant white male scheduled for an elective colonoscopy as a part of screening for colorectal neoplasia. PROCEDURE PERFORMED: Colonoscopy with biopsy. PREOPERATIVE DIAGNOSIS: Screening for colon cancer. IV sedation per Anesthesia. PROCEDURE: After informed consent was obtained, the patient, was brought into the endoscopy unit. IV sedation was administered by Anesthesia under continuous monitoring. Digital rectal examination was normal. Initially the Olympus CF-160 flexible video colonoscope was then inserted in the rectum, gradually advanced into the cecum without any difficulty. Careful examination was performed as the scope was gradually being withdrawn. Ileocecal valve and the appendiceal orifice were visualized and appeared normal. Prep was excellent. Mucosa of the cecum, ascending colon, transverse colon, appeared normal. The descending colon there was a 3-4 mm sessile polyp removed by cold biopsy. In the sigmoid colon there was a 3 mm polyp that was removed by cold biopsy. Rest of the descending colon, sigmoid colon, and rectum appeared normal. Retroflexion was performed in the rectum and no lesions were seen. The patient tolerated the procedure well. IMPRESSION: 3-4 mm sessile descending colon polyp status post cold biopsy 3 mm sigmoid colon polyp status post cold biopsy Scattered sigmoid diverticulosis RECOMMENDATIONS: Findings of this examination were discussed with the patient as well as his family. He was advised to follow with the biopsy. If the biopsy results adenoma he can have a repeat colonoscopy in 5 years.
[2021-01-23 07:40] VITALS: BP 122/77; PULSE 68
== END 2021-01-23 07:58 | disposition home or self-care (01) ==
LOC: ORWHC2ENDO 06:20
PROVIDERS: ATTEND Internal Medicine Gastroenterology
DX: Z12.11 Encounter for screening for malignant neoplasm of colon (principal); K63.5 Polyp of colon; K57.30 Diverticulosis of large intestine without perforation or abscess without bleeding; E78.5 Hyperlipidemia, unspecified; F17.200 Nicotine dependence, unspecified, uncomplicated; F41.9 Anxiety disorder, unspecified; F32.9 Major depressive disorder, single episode, unspecified; Z79.84 Long term (current) use of oral hypoglycemic drugs; Z79.4 Long term (current) use of insulin; Z79.899 Other long term (current) drug therapy; Z98.890 Other specified postprocedural states
CPT/HCPCS: 88305; 45380; J2001; J2704

== ENCOUNTER → 2021-07-03 | Outpatient (CLI) | payer BC ==
[2021-07-03 15:08] LABS: ALT 36 U/L (10-49); AST 26 U/L (14-35); African American GFR (CKD) 112.5 (60.0-200.0); Albumin 4.5 g/dL (3.8-4.9); Albumin/Globulin Ratio 1.88 (1.60-3.17); Alkaline Phosphatase 86 U/L (41-126); Blood Urea Nitrogen 27.2 mg/dL (9.0-27.0); Calcium 9.2 mg/dL (8.7-10.3); Carbon Dioxide 20.7 mmol/L (20.0-27.5); Chloride 105 mmol/L (96-109); Globulin 2.4 g/dL (1.6-3.3); Glucose 150 mg/dL (70-110); LDL Cholesterol,Calculated 60.6 mg/dL (0.0-131.0); Magnesium 2.1 mg/dL (1.5-2.4); Non-African American GFR(CKD) 97.1 (60.0-200.0); Potassium 4.1 mmol/L (3.5-5.5); Sodium 140 mmol/L (135-145); Total Protein 6.9 g/dL (6.2-8.2)
== END | disposition home or self-care (01) ==
LOC: LABWHC1 08:32
PROVIDERS: ATTEND Internal Medicine Interventional Cardiology
DX: E11.65 Type 2 diabetes mellitus with hyperglycemia (principal); E78.2 Mixed hyperlipidemia
CPT/HCPCS: 36415; 80053; 80061; 82043; 82570; 82607; 83036; 83735; 84439; 84443

== ENCOUNTER → 2022-01-27 | Outpatient (CLI) | payer BC ==
[2022-01-27 15:57] LABS: Chol/HDL Ratio 5.26 Ratio; LDL Cholesterol,Calculated 94.7 mg/dL (0.0-131.0)
[2022-01-27 15:58] LABS: ALT 63 U/L (10-49); AST 31 U/L (14-35); African American GFR (CKD) 107.3 (60.0-200.0); Albumin 4.5 g/dL (3.8-4.9); Albumin/Globulin Ratio 1.79 (1.60-3.17); Alkaline Phosphatase 74 U/L (41-126); BUN/Creat Ratio 18.67 Ratio (12.00-20.00); Blood Urea Nitrogen 16.5 mg/dL (9.0-27.0); Calcium 9.5 mg/dL (8.7-10.3); Carbon Dioxide 28.9 mmol/L (20.0-27.5); Chloride 104 mmol/L (96-109); Globulin 2.5 g/dL (1.6-3.3); Glucose 142 mg/dL (70-110); Non-African American GFR(CKD) 92.5 (60.0-200.0); Potassium 4.6 mmol/L (3.5-5.5); Sodium 139 mmol/L (135-145)
== END | disposition home or self-care (01) ==
LOC: LABWHC1 09:16
PROVIDERS: ATTEND Internal Medicine Interventional Cardiology
DX: E78.2 Mixed hyperlipidemia (principal)
CPT/HCPCS: 36415; 80053; 80061

== ENCOUNTER → 2022-09-08 | Outpatient (CLI) | payer BC ==
[2022-09-08 16:06] LABS: African American GFR (CKD) 113.2 (60.0-200.0); Anion Gap 9.8 mmol/L (10.00-18.00); Blood Urea Nitrogen 21.9 mg/dL (9.0-27.0); Carbon Dioxide 26.8 mmol/L (20.0-27.5); Non-African American GFR(CKD) 97.7 (60.0-200.0)
[2022-09-08 16:53] LABS: HCT 47.6 % (39.6-50.0); HGB 15.5 g/dL (13.0-17.0); MCH 30.6 pg (27.0-32.0); MCHC 32.6 g/dL (32.0-37.0); MCV 94.1 fL (80.0-97.0); Mean Platelet Volume 10.2 fL (9.5-12.2); NRBC Per 100 WBC 0 /100 WBCS (0.0-0.0); Platelet Count 296 X 10*3/uL (140-440); RBC 5.06 X 10*6/uL (4.40-5.60); RDW 12.8 % (11.5-14.5); WBC 8.38 X 10*3/uL (4.50-10.00)
== END | disposition home or self-care (01) ==
LOC: LABPAT 07:22
PROVIDERS: ATTEND Internal Medicine Interventional Cardiology
DX: Z01.812 Encounter for preprocedural laboratory examination (principal); I35.0 Nonrheumatic aortic (valve) stenosis; R94.39 Abnormal result of other cardiovascular function study
CPT/HCPCS: 36415; 80051; 82565; 84520; 85027

== ENCOUNTER 2022-09-09 08:58 | Day surgery (SDC) | payer BC ==
[2022-09-09] MEDS ORDERED: ALPRAZolam 0.25 MG TAB PO PRN (10:58)
[2022-09-09] MEDS ORDERED: ALPRAZolam 0.5 MG TAB PO PRN (10:58)
[2022-09-09] MEDS ORDERED: ASPIRIN 325 MG TAB PO STA (10:58)
[2022-09-09] MEDS ORDERED: ATORVASTATIN 80 MG TAB PO STA (10:58)
[2022-09-09] MEDS ORDERED: NITROGLYCERIN SL TABS 0.4 MG TAB SUBLINGUAL PRN (10:58)
[2022-09-09 11:24] LABS: Glucose,Whole Blood 100 mg/dL (70-110)
[2022-09-09] MEDS: SODIUM CHLORIDE 0.9% 1,000 ML in EMPTY BAG 1 BAG IV SCH ×3 (11:24→21:40)
[2022-09-09] MEDS ORDERED: ASPIRIN 81 MG ONE (11:30)
[2022-09-09] MEDS ORDERED: fentaNYL (PF) 50 MCG/ML 2 ML AMP ONE (12:59)
[2022-09-09] MEDS ORDERED: LIDOCAINE 1% INJ 10MG/ML (5 ML VIAL-PF) SQ ONE (13:06)
[2022-09-09] MEDS ORDERED: fentaNYL (PF) 50 MCG/ML 2 ML AMP IV ONE (13:06)
[2022-09-09] MEDS ORDERED: VERAPAMIL SYRINGE (5 MG/10 ML) INTRAARTER ONE (13:08)
[2022-09-09] MEDS ORDERED: HEPARIN SODIUM 1,000 UN/ML (10ML VL) ONE (13:10)
[2022-09-09] MEDS ORDERED: HEPARIN SODIUM 1,000 UN/ML (10ML VL) IV ONE (13:12)
[2022-09-09] MEDS ORDERED: IOPAMIDOL-370 200ML BTL INJ ONE (13:19)
[2022-09-09] MEDS ORDERED: RX INFO: IV CONTRAST WAS GIVEN 1 EACH MISC MISCELLANE PRN (13:36)
--- NOTE | 2022-09-09 13:44 | P.CARDCATH ---
Date of Procedure: 09/09/22 Description of Procedure: Cardiac Catheterization: The patient is a 61-year-old male with known history of hyperlipidemia, diabetes who has been complaining of dyspnea on exertion and was found to have an abnormal MPI. Recommendations were made regarding cardiac catheterization, the risks and the complications were discussed with the patient who is in full understanding and agreement. Procedure Description: Patient was brought to laboratory aide in fasting semi-sedated state after receiving Fentanyl and Benadryl achieiving moderate conscious sedated state. Using Xylocaine Anesthesia and Seldinger technique, a 6-Kyrgyz sheath was introduced in the right radial artery . Subsequently, selective coronary angiography was performed using a 5-Kyrgyz 3.5 bend Wendy catheter. Multiple views of the coronary artery including hemiaxial views were obtained. The right Wendy catheter was used to cross the aortic valve and LVEDP was calculated. Following that, catheter and sheath were removed. Hemostasis was obtained with deployment of TR band . There was no immediate complication. Patient was returned to room in stable condition. Of note, the patient received a total of 4500 units of intravenous heparin as well as intra-arterial verapamil. Findings: Fluoroscopy: Severe calcifications of all the coronary arteries and aortic valve is noted Left main: This is a large size vessel, bifurcating into LAD and left circumflex, the distal left main is a 60% stenosis. LAD: This is a large size vessel, giving rise to a large proximal diagonal branch that has a 99% stenosis. The LAD at the takeoff of the second branch has another 80% stenosis in the second diagonal branch has a 70% stenosis, the vessels are diffusely diseased. Left circumflex: This is a nondominant vessel, giving rise to 2 obtuse marginal branch. The second obtuse margin branch has a tubular lesion of 70-80% the rest of the vessel has no high-grade stenosis RCA: This is a dominant vessel, large in caliber, bifurcating into PDA and PLV. The mid RCA has an eccentric 80% stenosis and the distal RCA has another 80% stenosis, the PLV and PDA have intimal disease with no high-grade stenosis Left Ventriculogram: Not performed Hemodynamics: The peak gradient across the aortic valve was 40 mmHg with a mean of 38 mmHg, LVEDP was 16-20 mmHg Conclusion: 1. Calcified coronary arteries and aortic valve 2. 50-60% distal left main stenosis 3. And severe triple vessel disease 4. And moderate severe aortic stenosis Recommendations: I have recommended to proceed with transesophageal echocardiogram to evaluate the aortic valve, the patient would benefit from CABG and aortic valve replacement in view of the anatomy and the history of diabetes. The findings and the recommendations were discussed with the patient and the family and they were in full understanding and agreement. Duration of sedation is 16 minutes.
[2022-09-09] MEDS ORDERED: SODIUM CHLORIDE 0.9% 1,000 ML IV SCH (13:45)
[2022-09-09 17:40] LABS: Glucose,Whole Blood 144 mg/dL (70-110)
[2022-09-09] MEDS: GLIMEPIRIDE 1 MG TAB PO SCH (17:48)
[2022-09-09 20:04] LABS: Glucose,Whole Blood 116 mg/dL (70-110)
[2022-09-10 06:10] LABS: Basophils # (A) 0.1 k/uL (0-0.2); Basophils % (A) 1 %; Eosinophils # (A) 0.1 k/uL (0-0.7); Eosinophils % (A) 2 %; HCT 45.7 % (39.0-53.0); Lymphocytes # (A) 2.5 k/uL (1.0-4.8); Lymphocytes % (A) 30 %; MCH 30.9 pg (25.0-35.0); MCHC 32.9 g/dL (31.0-37.0); MCV 93.8 fL (80.0-100.0); Mean Platelet Volume 7.4; Monocytes # (A) 0.5 k/uL (0-1.0); Monocytes % (A) 7 %; Neutrophils # (A) 4.8 k/uL (1.3-7.7); Neutrophils % (A) 59 %; Platelet Count 281 k/uL (150-450); RBC 4.87 m/uL (4.30-5.90); RDW 12.9 % (11.5-15.5); WBC 8.2 k/uL (3.8-10.6)
[2022-09-10] MEDS ORDERED: IV FLUID CONTINUATION 1,000 ML IV ONE (06:58)
[2022-09-10] MEDS ORDERED: HEPARIN SODIUM,PORCINE 2,500 UNIT in SODIUM CHLORIDE 0.9% 250 ML IRRIGATION PRN (07:00)
[2022-09-10] MEDS ORDERED: HEPARIN SODIUM,PORCINE 10,000 UNIT in SODIUM CHLORIDE 0.9% 1,000 ML IRRIGATION PRN (07:00)
[2022-09-10] MEDS ORDERED: fentaNYL (PF) 50 MCG/ML 2 ML AMP ONE (07:03)
[2022-09-10] MEDS ORDERED: BENZOCAINE SPRAY 1 CAN TOPICAL ONE (07:22)
[2022-09-10] MEDS ORDERED: MIDAZOLAM 2 MG/2 ML VIAL IV ONE (07:23)
[2022-09-10] MEDS ORDERED: fentaNYL (PF) 50 MCG/1 ML VIAL IV ONE (07:23)
[2022-09-10] MEDS ORDERED: SODIUM CHLORIDE 0.9% 1,000 ML IV SCH (07:45)
--- NOTE | 2022-09-10 07:46 | P.PCN ---
Date of Procedure: 09/10/22 Description of Procedure: Indication: Aortic stenosis Procedure Description: After explaining the procedure to the patient, it's risk and complications, blood pressure, heart rate and O2 saturation were monitored. The throat was sprayed with Cetacaine. Patient received 2 mg intravenous Versed, 50 mcg intra venous fentanyl. The probe was introduced into the esophagus without difficulty. Images were obtained. Following that, the probe was removed. There was no immediate complication. Findings: Left atrial atrial size is normal, left atrial appendage is normal, left ventricle size and systolic function are normal. The aortic valve is a functional bicuspid valve, heavily calcified with reduced opening. By planimetry the aortic valve area is 1 cm. The mitral valve appears to be normal, tricuspid valve is normal, pulmonic valve is normal. Descending thoracic aorta revealed mild atherosclerotic changes. No pericardial effusion was noted. Contrast bubble study revealed no shunting across the intra-atrial septum with Valsalva maneuver. Doppler: Pulse wave and color Doppler were obtained, and revealed mild mitral regurgitation. The peak gradient across the aortic valve was 65 mmHg with a mean of 44 mmHg. There was no shunting by color Doppler study. Conclusion: 1. Normal left ventricle size and systolic function 2. Functional bicuspid aortic valve with severe aortic stenosis and a mean gradient of 44 mmHg 3. Mild mitral regurgitation 4. No shunting across the intra-atrial septum 5. No pericardial effusion
--- NOTE | 2022-09-10 07:49 | P.PN ---
Subjective Progress Note Date: 09/10/22 PROGRESS NOTE The patient is a 61-year-old male with a history of hypertension, hyperlipidemia and diabetes mellitus as well as aortic stenosis who has been complaining of dyspnea on exertion and had an abnormal MPI. Underwent cardiac catheterization that showed severe triple vessel disease. He is feeling well this morning, he denies any chest discomfort, dizziness or palpitations. He underwent a SPENCER that showed a severe aortic stenosis. Medications: Aspirin, Zestril 5 mg daily, Lipitor 40 mg daily, Amaryl 2 mg twice a day, insulin, Jardiance,Ozempic PHYSICAL EXAMINATION: Blood pressure 119/70 heart rate 80 LUNGS: Clear to auscultation HEART: Regular rate and rhythm, S1, S2. No S3. systolic ejection murmur 06/30 ABDOMEN: Soft, nontender, no organomegaly EXTREMETIES: No edema, right radial pulse intact LAB: Hemoglobin 15 IMPRESSION: 1. Severe triple-vessel coronary disease 2. And severe aortic stenosis 3. Hypertension 4. Hyperlipidemia 5. Diabetes mellitus PLAN: 1. Patient will continue present therapy 2. He'll be discharged home today 3. Evaluate as an outpatient for aortic valve replacement and CABG 4. Depending on his progress further recommendations will be made Objective - Vital Signs Vital signs: Vital Signs Temp 98.3 F 09/10/22 02:00 Pulse 83 09/10/22 02:00 Resp 16 09/10/22 02:00 BP 119/74 09/10/22 02:00 Pulse Ox 98 09/10/22 02:00 FiO2 Intake & Output 09/09/22 09/10/22 09/10/22 18:59 06:59 18:59 Intake Total 960 Balance 960 Weight 86.7 kg Intake: IV 400 Oral 560 Other: Voiding Method Toilet Toilet # Voids 1 - Labs CBC & Chem 7: 09/10/22 05:27 Labs: Abnormal Lab Results - Last 24 Hours (Table) 09/09/22 09/09/22 Range/Units 17:38 20:02 POC Glucose (mg/dL) 144 H 116 H (70-110) mg/dL
[2022-09-10 08:11] VITALS: BP 116/70; PULSE 68; RESP 18; TEMP 98
[2022-09-10] MEDS ORDERED: DAPAGLIFLOZIN PROPANEDIOL 10 MG TABLET PO SCH (09:00)
[2022-09-10] MEDS ORDERED: allopurinoL 300 MG TAB PO SCH (09:00)
[2022-09-10] MEDS ORDERED: ASPIRIN 81 MG PO SCH (09:00)
[2022-09-10] MEDS ORDERED: ATORVASTATIN 40 MG TAB PO SCH (09:00)
[2022-09-10] MEDS ORDERED: lisinopriL 5 MG TAB PO SCH (09:00)
[2022-09-10] MEDS ORDERED: CITALOPRAM HYDROBROMIDE 20 MG TAB PO SCH (09:00)
[2022-09-10] MEDS: GLIMEPIRIDE 1 MG TAB PO SCH (10:49)
[2022-09-15] MEDS ORDERED: NON FORMULARY DRUG (Semaglutide [Ozempic] 0.25 MG/0.2 ML Each) SQ SCH (09:00)
== END 2022-09-10 11:54 | disposition home or self-care (01) ==
LOC: CATHCVL 08:58 → 6NMEDSUR 13:20 → CATHCVL 09-10 11:54
PROVIDERS: ATTEND Internal Medicine Interventional Cardiology
DX: I35.0 Nonrheumatic aortic (valve) stenosis (principal); I34.0 Nonrheumatic mitral (valve) insufficiency; E11.9 Type 2 diabetes mellitus without complications; F17.210 Nicotine dependence, cigarettes, uncomplicated; E78.2 Mixed hyperlipidemia; Z79.84 Long term (current) use of oral hypoglycemic drugs; Z79.82 Long term (current) use of aspirin; Z79.899 Other long term (current) drug therapy
CPT/HCPCS: 93312; 93320; 93325; 93458; 85025; C1769 ×3; C1894; J2250; J2001; J3010 ×2; J1644; Q9967

== ENCOUNTER → 2023-01-30 | Outpatient (CLI) | payer BC ==
[2023-01-30 16:52] LABS: ALT 26 U/L (10-49); AST 23 U/L (14-35); Chol/HDL Ratio 4.29 Ratio; LDL Cholesterol,Calculated 69.3 mg/dL (0.0-131.0)
== END | disposition home or self-care (01) ==
LOC: LABWHC1 08:14
PROVIDERS: ATTEND Internal Medicine Interventional Cardiology
DX: E78.2 Mixed hyperlipidemia (principal)
CPT/HCPCS: 36415; 80061; 84450; 84460